=== PATIENT | female | born 1960 | race Caucasian/White ===

== ENCOUNTER 2018-12-27 11:45 | Day surgery (SDC) | payer OTHER ==
[~2018-12-27] VITALS: Ht 170.2 cm; Wt 113.6 kg
[~2018-12-27 11:45] MED LIST: ALBU8.5H5 IH; CELEXA; CITA10TA10 PO; CITALOPRAM; FOLIC ACID; LISINOPRIL; TUMERIC; VITAMIN B12; VITAMIN D3; VITAMINS PO
[2018-12-27 15:03] VITALS: BP 146/75; PULSE 60; RESP 16
--- NOTE | 2018-12-27 16:47 | PREAC ---
Date/Time of Note Date/Time of Note DATE: 12/27/18 TIME: 16:45 Anesthesia Eval and Record Evaluation Time Pre-Procedure Interview DATE: 12/27/18 TIME: 16:45 Age 58 Sex female NPO: 8 hrs Preoperative diagnosis Colon screening Planned procedure Colonoscopy Past Medical History Past Medical History: Includes Cardio: HTN, Dyslipidemia Pulm: Smoking Hx, COPD, Asthma GI: Morbid obesity Surgery & Anesthesia Issues No known issue Meds Anticoagulation: No Beta Valeria within 24 hr: No Reason Beta Valeria not given: Pt. not on B-Valeria Reported Medications [Tumeric] No Conflict Check 12/27/18 [Vitamin D3] No Conflict Check 12/27/18 [Vitamin B12] No Conflict Check 12/27/18 [Lisinopril] No Conflict Check 12/27/18 [Folic Acid] No Conflict Check 12/27/18 [Citalopram] No Conflict Check 12/27/18 Albuterol Sulfate* (Albuterol Sulfate* HFA) 8.5 Gm Hfa.aer.ad, 2 PUFF IH Q6, EA 07/25/14 Citalopram Hydrobromide* (Celexa*) 10 Mg Tablet, 10 MG PO DAILY, TAB 07/25/14 Discontinued Reported Medications [Celexa] No Conflict Check 12/27/18 [Vitamins] No Conflict Check, PO 07/25/14 Meds reviewed: Yes Allergies Coded Allergies: No Known Allergy (Unverified , 12/27/18) Allergies Reviewed: Yes Labs/Studies Labs Reviewed: Reviewed by anesthesiologist test: N/A Studies: ECG Pre-procedure Exam Last vitals Vital Signs Date Temp Pulse Resp B/P (MAP) Pulse Ox O2 O2 Flow FiO2 Time Delivery Rate 12/27/18 97.1 60 16 146/75 9 Room Air 15:03 (98) Airway: Adequate mouth opening, Adequate thyromental dist Mallampati: Mallampati III Teeth: Normal Lung: Normal Heart: Normal ASA Physical Status ASA physical status: 3 Emergency: None Planned Anesthetic General/MAC: MAC Pre-operative Attestations Prior to commencing anesthesia and surgery, the patient was re-evaluated, there was verification of: *The patient's identity *The results of appropriate recent lab work and preoperative vital signs *The above evaluation not changing prior to induction *Anesthetic plan, risk benefits, alternative and complications discussed with patient/family; questions answered; patient/family understands, accepts and wishes to proceed. ADAMA PABON MD Dec 27, 2018 16:47
[2018-12-27] MEDS ORDERED: PROPOFOL 60 ML ONE (16:49)
[2018-12-27] MEDS ORDERED: LIDOCAINE 2% (SDV) 5 ML INJ ONE (16:49)
[2018-12-27] MEDS ORDERED: GLUCAGON 1 MG INJ ONE (17:12)
[2018-12-27] MEDS ORDERED: PROPOFOL 20 ML ONE ×2 (17:25)
--- NOTE | 2018-12-27 17:51 | PAC ---
Date/Time of Note Date/Time of Note DATE: 12/27/18 TIME: 17:51 Post-Anesthesia Notes Post-Anesthesia Note Last documented vital signs Vital Signs Date Temp Pulse Resp B/P (MAP) Pulse Ox O2 O2 Flow FiO2 Time Delivery Rate 12/27/18 97.1 60 16 146/75 9 Room Air 15:03 (98) Activity: WNL Respiratory function: WNL Cardiovascular function: WNL Mental status: Baseline Pain reasonably controlled: Yes Hydration appropriate: Yes Nausea/Vomiting absent: Yes Comments BP:112/67, P;78, spo2:100%, T;98,8 ADAMA PABON MD Dec 27, 2018 17:51
[2018-12-27 18:25] VITALS: BP 150/71; RESP 15
== END 2018-12-27 18:22 | disposition home or self-care (01) ==
LOC: GIL 11:45
PROVIDERS: ATTEND Internal Medicine Gastroenterology
DX: Z12.11 Encounter for screening for malignant neoplasm of colon (principal); D12.2 Benign neoplasm of ascending colon; D12.0 Benign neoplasm of cecum; D12.4 Benign neoplasm of descending colon; D12.7 Benign neoplasm of rectosigmoid junction; D12.5 Benign neoplasm of sigmoid colon; I10 Essential (primary) hypertension; E78.5 Hyperlipidemia, unspecified; J44.9 Chronic obstructive pulmonary disease, unspecified; F17.200 Nicotine dependence, unspecified, uncomplicated; E66.01 Morbid (severe) obesity due to excess calories; Z68.39 Body mass index [BMI] 39.0-39.9, adult
CPT/HCPCS: 45380; 45385; 88305; J1610; Z7610